=== PATIENT | female | born 1990 | race African-American/Black ===

== ENCOUNTER → 2021-04-13 | Outpatient (CLI) | payer OTHER ==
[~2021-04-13] MED LIST: KETO75CA PO; META800T5 PO
[2021-04-13 12:42] LABS: ALBUMIN 3.2 GM/DL (3.2-4.5); POTASSIUM 3.9 MMOL/L (3.6-5.0)
[2021-04-13 12:44] LABS: CALCIUM 9.3 MG/DL (8.5-10.1)
[2021-04-13 12:45] LABS: TOTAL PROTEIN 6.6 GM/DL (6.4-8.2)
[2021-04-13 12:46] LABS: BILIRUBIN,TOTAL 0.3 MG/DL (0.1-1.0)
[2021-04-13 12:48] LABS: CREATININE SERUM 0.63 MG/DL (0.60-1.30)
[2021-04-13 12:51] LABS: URIC ACID 5.3 MG/DL (2.6-7.2)
[2021-04-13 13:12] LABS: FREE T4 (FREE THYROXINE) 0.8 NG/DL (0.70-1.48)
== END ==
LOC: LABNPT 12:31
PROVIDERS: ATTEND Obstetrics & Gynecology
DX: O14.93 Unspecified pre-eclampsia, third trimester (principal); Z3A.00 Weeks of gestation of pregnancy not specified
CPT/HCPCS: 80053; 82570; 83615; 84156; 84439; 84443; 84550

== ENCOUNTER → 2021-05-11 | Outpatient (CLI) | payer MEDICAID | LOC: CARD 14:00 | PROVIDERS: ATTEND Internal Medicine Cardiovascular Disease | DX: I35.1 Nonrheumatic aortic (valve) insufficiency (principal); I51.7 Cardiomegaly | CPT/HCPCS: 93306 ==

== ENCOUNTER → 2021-09-22 | Outpatient (CLI) | payer MEDICAID ==
--- NOTE | 2021-09-22 10:04 | Diagnostic Imaging Report ---
PROCEDURE: US Renal/Bladder. TECHNIQUE: Multiple real-time grayscale images were obtained over the kidneys in various projections bilaterally. Doppler ultrasound was performed of the bilateral kidneys. INDICATION: Hypertension. COMPARISON: None. FINDINGS: Right: The right kidney measures 10.7 cm in length. Renal cortical thickness and echogenicity are within normal limits. There is no evidence of calculi, solid focal mass or hydronephrosis. No perinephric fluid collections are identified. The peak systolic velocity within the right renal artery measures 91 cm/s. The right renal to aorta ratio measures 0.74. The resistive indices within the arcuate arteries on the right measure 0.55-0.58. Left: The left kidney measures 11.1 cm in length. Renal cortical thickness and echogenicity are within normal limits. There is no evidence of calculi, solid focal mass or hydronephrosis. No perinephric fluid collections are identified. The peak systolic velocity within the left renal artery measures 78 cm/s. The left renal artery to aorta ratio measures 0.63. The resistive indices within the arcuate arteries on the left measures 0.53-0.57. The peak systolic velocity within the abdominal aorta measures 123 cm/s. There is no abdominal ascites. Views of the pelvis demonstrate a moderately distended urinary bladder. No large intraluminal filling defect or calculi are identified. IMPRESSION: 1. No acute renal abnormalities identified. 2. No sonographic evidence of renal artery stenosis. Dictated by: Dictated on workstation # [id number]
== END ==
LOC: RAD 07:54
PROVIDERS: ATTEND Internal Medicine Cardiovascular Disease
DX: I10 Essential (primary) hypertension (principal)
CPT/HCPCS: 76770; 93975

== ENCOUNTER 2022-02-27 01:36 | Emergency (ER) | payer MEDICAID ==
[~2022-02-27] VITALS: Ht 155 cm; Wt 117.9 kg
--- NOTE | 2022-02-27 02:19 | ED Lower Extremity ---
General Chief Complaint: Lower Extremity Stated Complaint: RT KNEE PAIN,POPPED OUT OF PLACE Nursing Triage Note: PT TO RM 5 VIA WC W C/O RIGHT KNEE PAIN SX NIGHT OF 02/25/22 WHEN SHE WAS DANCING AND FELT IT POP. PT REPORTS SHE IS UNABLE TO AMBULATE D/T PAIN. PT A&OX4. (NICOLE JUDD) History of Present Illness Date Seen by Provider: Feb 27, 2022 Time Seen by Provider: 02:07 Initial Comments 32 yo female with no pertinent pmhx presents to the ED with chief complaint of right knee pain since yesterday night. Pt reports that she was dancing and heard a pop in her right knee. Pt has felt a popping sensation in the past but previous times the pain did not last. Pt is unable to bear weight due to pain. Pt reports 10/10 sharp knee pain that radiates up her leg. She reports that right knee swelling since onset of injury. Reports taking Tylenol and Gabapentin 300mg. Pt tried icy hot without relief and has not iced or used any compression for knee. Pt denies any redness, bruising, numbness/tingling. No previous injury to lower extremities.No other complaints. Onset: yesterday Pain/Injury Location: right knee Method of Injury: other (dancing) (NICOLE JUDD) Allergies and Home Medications Allergies Coded Allergies: No Known Drug Allergies (Unverified , 06/04/14) Patient Home Medication List Home Medication List Reviewed: Yes (NICOLE JUDD) Ketoprofen (Orudis) 75 Mg Capsule, 1 EACH PO Q8H PRN for PAIN Prescribed by: AMNA BARRY on 06/04/14 020 Metaxalone (Skelaxin) 800 Mg Tablet, 800 MG PO Q6H PRN for SPASMS Prescribed by: AMNA BARRY on 06/04/14 020 Review of Systems Constitutional: no symptoms reported EENTM: no symptoms reported Respiratory: no symptoms reported Cardiovascular: no symptoms reported Gastrointestinal: no symptoms reported Genitourinary: no symptoms reported : No Control/STD Prophylaxis: Other (Nexplanon) Musculoskeletal: joint swelling (Right knee pain ), muscle pain (Right knee pain ) Skin: No change in color, No lesions Psychiatric/Neurological: Denies Numbness, Denies Paresthesia, Denies Tingling (NICOLE JUDD) Past Mnmmfjh-Aikhgq-Vdglzq Hx Patient Social History Tobacco Use?: Yes Tobacco type used: Cigarettes Smoking Status: Current Everyday Smoker Use of E-Cig and/or Vaping dev: No Substance use?: No Alcohol Use?: Yes Alcohol Frequency: Once in a while (NICOLE JUDD) Immunizations Up To Date Influenza Vaccine Up-to-Date: No; Not Current First/Initial COVID19 Vaccinat: 2020 Second COVID19 Vaccination Phong: NONE Third COVID19 Vaccination Date: NONE COVID19 Vaccine [employer]: Noxilizer X1 (NICOLE JUDD) Seasonal Allergies Seasonal Allergies: No (NICOLE JUDD) Physical Exam Vital Signs Vital Signs - First Documented 02/27/22 01:45 Temp 36.6 Pulse 112 Resp 22 B/P (MAP) 194/127 (149) Pulse Ox 96 O2 Delivery Room Air (DEJA PÉREZ MD) Vital Signs Capillary Refill : Less Than 3 Seconds (NICOLE JUDD) Height, Weight, BMI Height: 5'1" Weight: 235lbs. oz. 106.802920aj; 49.00 BMI Method:Stated General Appearance: WD/WN, no apparent distress (Patient does not appear in acute pain at rest, though she does endorse severe 10/10 pain with MSK physical exam which also limits ability to perform full ROM.) HEENT: PERRL/EOMI, normal ENT inspection, TMs normal, pharynx normal Neck: non-tender, full range of motion, supple, normal inspection Cardiovascular: regular rate, rhythm, no edema, no gallop, no JVD, no murmur Respiratory: chest non-tender, lungs clear, normal breath sounds, no respiratory distress, no accessory muscle use Gastrointestinal: normal bowel sounds, non tender, soft, no organomegaly, no pulsatile mass Back: normal inspection, no CVA tenderness, no vertebral tenderness Hips: bilateral hip non-tender, bilateral hip normal inspection, bilateral hip normal range of motion Legs: bilateral leg non-tender, bilateral leg normal inspection, bilateral leg normal range of motion Knees: left knee normal range of motion; right knee bone tenderness, right knee pain, right knee soft tissue tenderness, right knee swelling Ankles: bilateral ankle non-tender, bilateral ankle normal inspection, bilateral ankle normal range of motion, bilateral ankle no evidence of injury Feet: bilateral foot non-tender, bilateral foot normal range of motion, bilateral foot no evidence of injury Neurologic/Tendon: normal sensation, normal motor functions, normal tendon functions Neurologic/Psychiatric: 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, no motor/sensory deficits, alert, normal mood/affect, oriented x 3 Skin: normal color, warm/dry Lymphatic: no adenopathy (NICOLE JUDD) Progress/Results/Core Measures Results/Orders My Orders Orders - DEJA PÉREZ MD Knee, Right, 3 Views (02/27/22 02:24) Crutches (02/27/22 03:28) Ibuprofen Tablet (Motrin Tablet) (02/27/22 03:30) Hydrocodone/Apap 5/325 Tablet (Lortab 5 (02/27/22 03:30) (DEJA PÉREZ MD) Medications Given in ED Current Medications Medications Dose Ordered Sig/Elizabeth Route Start Time Stop Time Status Last Admin Dose Admin Acetaminophen/ Hydrocodone Bitart 1 ea ONCE ONCE PO 02/27/22 03:30 02/27/22 03:31 DC 02/27/22 03:36 1 EA Ibuprofen 600 mg ONCE ONCE PO 02/27/22 03:30 02/27/22 03:31 DC 02/27/22 03:36 600 MG (DEJA PÉREZ MD) Vital Signs/I&O 02/27/22 02/27/22 01:45 03:53 Temp 36.6 Pulse 112 88 Resp 22 B/P (MAP) 194/127 (149) 152/92 Pulse Ox 96 96 O2 Delivery Room Air Room Air (DEJA PÉREZ MD) Blood Pressure Mean: 149 Progress Progress Note : Time: 02:[address] Pérez examined patient (NICOLE JUDD) Progress Note : Progress Note Patient was interviewed and examined by me along with medical students. X-rays revealed no osseous injuries. There was a joint effusion seen on x-ray. Patient was provided with a knee immobilizer and crutches. Pain was treated with ibuprofen and hydrocodone. Patient was advised that she would need further evaluation by her primary care provider and possibly an MRI. See discharge instructions for further discussion. She was much overdue for her blood pressure medication and was significantly hypertensive in the ER. She was advised to promptly take her usual blood pressure medications. (DEJA PÉREZ MD) Initial ECG Impression Date: Feb 27, 2022 (NICOLE JUDD) Diagnostic Imaging Diagonstic Imaging: Xray Plain Films/CT/US/NM/MRI: knee Comments X-rays of the right knee were reviewed by me. Report was not available at the time of the encounter. Anterior joint effusion was noted without any bony abnormalities. Radiologist report was later reviewed as below. NAME: AMEENA MICHELE [facility] REC#: [id number] PT STATUS: DEP ER : 1990 PHYSICIAN: DEJA PÉREZ MD ADMIT DATE: 02/27/22/ER Signed Date of Exam:02/27/22 KNEE, RIGHT, 3 VIEWS COMPARISON: None available. INDICATION: Knee pain TECHNIQUE: Non-weight bearing AP, oblique, and lateral views of the right knee. FINDINGS: No fracture or traumatic malalignment. Moderate size knee joint effusion. No knee joint effusion. IMPRESSION: Joint effusion without acute osseous abnormality. Dictated by: Dictated on workstation # [id number] Dict: 02/27/2240 Trans: 02/27/22640 [facility] [id number] Interpreted by: YANELI MAI MD Electronically signed by: YANELI MAI MD 02/27/22 0641 (DEJA PÉREZ MD) Departure Impression Primary Impression: Injury of right knee Qualified Codes: S89.91XA - Unspecified injury of right lower leg, initial encounter Additional Impression: Hypertension Qualified Codes: I10 - Essential (primary) hypertension Disposition: 01 HOME, SELF-CARE Condition: Improved Departure-Patient Inst. Decision time for Depature: 03:29 (DEJA PÉREZ MD) Referrals: [facility] (PCP/Family) Primary Care Physician Patient Instructions: Knee Pain ED Add. Discharge Instructions: The exact cause of your knee pain is uncertain, but it is likely related to a soft tissue injury such as a meniscus tear. Please follow-up with your primary care provider soon as possible to discuss further evaluation. Your primary care provider will use his or her discretion to direct further evaluation which may include physical therapy, MRI imaging, etc. In the meantime, use ibuprofen up to 600 mg every 6 hours as needed and Tylenol (acetaminophen) up to 1000 mg every 6 hours as needed for pain. You may also ice your knee in 20-minute intervals. Avoid weightbearing or walking if those activities are painful. You may gradually increase level of activity as pain allows. Avoid any weightbearing until you call the emergency room later this morning for the official radiologist's interpretation of your x-rays. Please call after 9:00 this morning to receive the official reports. You may use crutches and/or a knee immobilizer to offload weight from your knee and provide additional support. Return to care if you have worsening symptoms despite following these instructions. For long-term prevention of joint injuries work toward core body strengthening exercises and weight loss. All discharge instructions reviewed with patient and/or family. Voiced understanding. Medical Student Attestation and Attending Note: I have personally interviewed and examined this patient along with Nicole Judd MS3. I have reviewed student documentation including history, physical, and assessments. I agree with the documentation except where otherwise noted. Exam: General: Alert, oriented, no acute distress, well developed, obese HEENT: Normocephalic and atraumatic Heart: Regular rate and rhythm without murmur Lungs: Clear to auscultation bilaterally with normal effort Ext: Right knee TTP along the medial joint line with mild effusion. Resists movement through ROM due to pain. No warmth or erythema. Neuropsych: Alert, oriented, no focal deficits Skin: Warm and dry without rashes (DEJA PÉREZ MD) Copy Copies To 1: [facility]/NICOLE DAILEY Feb 27, 2022 02:19 DEJA PÉREZ MD Feb 27, 2022 03:28
[2022-02-27] MEDS ORDERED: IBUPROFEN TABLET 200 MG TAB PO ONE (03:30)
[2022-02-27] MEDS ORDERED: HYDROcodone/APAP 5 MG/325 MG (LORTAB) TAB PO ONE (03:30)
[2022-02-27 03:53] VITALS: BP 152/92
--- NOTE | 2022-02-27 06:42 | Diagnostic Imaging Report ---
KNEE, RIGHT, 3 VIEWS COMPARISON: None available. INDICATION: Knee pain TECHNIQUE: Non-weight bearing AP, oblique, and lateral views of the right knee. FINDINGS: No fracture or traumatic malalignment. Moderate size knee joint effusion. No knee joint effusion. IMPRESSION: Joint effusion without acute osseous abnormality. Dictated by: Dictated on workstation # [id number]
== END 2022-02-27 03:53 | disposition home or self-care (01) ==
LOC: EDUNIT# 01:36 → ER 01:40
DX: S89.91XA Unspecified injury of right lower leg, initial encounter (principal); I10 Essential (primary) hypertension; F17.210 Nicotine dependence, cigarettes, uncomplicated; X50.0XXA Overexertion from strenuous movement or load, initial encounter; Y93.41 Activity, dancing
CPT/HCPCS: 73562